=== PATIENT | male | born 1975 | race Caucasian/White ===

== ENCOUNTER 2017-06-04 08:30 | Outpatient (RCR) | payer OTHER, SELFPAY | END 2017-06-04 08:31 | disposition home or self-care (01) | LOC: PT 08:30 | PROVIDERS: Visit Provider Orthopaedic Surgery | DX: M54.5 Low back pain (principal) | CPT/HCPCS: 97010; 97012; 97014; 97035; G0283 ==

== ENCOUNTER 2017-08-07 08:30 | Outpatient (RCR) | payer OTHER, SELFPAY | END 2017-08-07 08:31 | disposition home or self-care (01) | LOC: PT 08:30 | PROVIDERS: Visit Provider Orthopaedic Surgery Orthopaedic Surgery of the Spine | DX: M54.16 Radiculopathy, lumbar region (principal) | CPT/HCPCS: 97010; 97014; 97110; G0283 ==

== ENCOUNTER → 2017-12-26 14:14 | Outpatient (CLI) | payer OTHER, SELFPAY ==
[2017-12-26 15:19] LABS: Amylase 59 U/L (25-125); Lipase 261 u/L (73-393)
== END ==
PROVIDERS: Visit Provider Internal Medicine Cardiovascular Disease
DX: I25.10 Atherosclerotic heart disease of native coronary artery without angina pectoris (principal); K21.9 Gastro-esophageal reflux disease without esophagitis; E78.5 Hyperlipidemia, unspecified
CPT/HCPCS: 36415; 82150; 83690

== ENCOUNTER → 2018-01-09 10:39 | Outpatient (CLI) | payer OTHER, SELFPAY ==
--- NOTE | 2018-01-09 10:41 | CA_ITS ---
PROCEDURE: 2-D M-mode and color Doppler study INDICATIONS FOR THE TEST: Chest pain+ COPD Heart Murmur Tobacco Smoking Palpitations Fatigue+ Syncope Edema+ Hypertension+Diabetes Mellitus Rheumatic Fever SOB+ROYAL Obesity+Hyperlipidemia+ Family History HD+ Additional History 2 stents 08/2015 PATIENT INFORMATION HEIGHT: 72 WEIGHT: 222 GENDER: Male B/P: 124/89 2-D/M-MODE INTERPRETATION: 2-D MEASUREMENTS OBSERVED VALUES IN CMS Right Ventricular Dimension (RVDd) 2.6 Interventricular Septum (Thickness)(IVsd) 1.1 Left Ventricular Internal Dimensions(LVIDd) 4.5 Left Ventricular Posterior Wall (Thickness)(LVPWd) 1.0 Aortic Root 3.3 Aortic Cusp Separation 2.4 Left Atrial Dimensions (LAD) 4.0 2D 1. Left atrium is mildly enlarged, left ventricle is normal size, mild concentric left ventricular hypertrophy, visually estimated ejection fraction 55% with no obvious regional wall motion abnormality. 2. The right atrium and right ventricle are normal size and contractility. 3. The aortic valve is thickened and calcified leaflet continue to display mobility. 4. The mitral and tricuspid valve leaflets are minimally thickened 5. The pulmonic valve is poorly visualized. 6. No significant pericardial effusion noted. DOPPLER INTERROGATION: Doppler interrogation of the aortic, mitral, tricuspid and pulmonic valve reveals presence of mild mitral and tricuspid regurgitation, tricuspid regurgitation jet velocity is insufficient for calculation of the right ventricular systolic pressure, moderate pulmonic insufficiency also seen. Diastolic parameters are inconclusive. CONCLUSION: 1. Mildly enlarged left atrium, normal left ventricular size, mild concentric left ventricular hypertrophy, visually estimated ejection fraction 55% with no obvious regional wall motion abnormality, diastolic parameters are inconclusive. 2. Mild mitral, tricuspid and moderate pulmonic insufficiency. 3. No significant pericardial effusion noted.
== END ==
PROVIDERS: Visit Provider Internal Medicine Cardiovascular Disease
DX: I25.10 Atherosclerotic heart disease of native coronary artery without angina pectoris (principal); I10 Essential (primary) hypertension; R07.9 Chest pain, unspecified; Z95.5 Presence of coronary angioplasty implant and graft
CPT/HCPCS: 93306

== ENCOUNTER 2018-06-12 13:18 | Inpatient (IN) ==
[2018-06-12 14:07] LABS: Basophils % 0.3 % (0.1-2.0); Eosinophils % 0.1 % (0.1-12.0); Hematocrit 41.5 % (42.0-52.0); Hemoglobin 13.9 g/dL (14.1-18.0); Lymphocytes # 0.5 K/mm3 (0.7-4.5); Lymphocytes % 13.6 % (10-50); Mean Corpuscular HGB Conc 33.6 g/dL (31.8-35.4); Mean Corpuscular Hemoglobin 30.1 pg (27.0-31.2); Mean Corpuscular Volume 89.4 fl (80-94); Mean Platelet Volume 8.7 fl (7.4-10.4); Monocytes # 0.2 K/mm3 (0.1-1.0); Monocytes % 4.2 % (1.7-9.3); Neutrophils % 81.8 % (37.0-80.0); Platelet Count 107 K/mm3 (142-424); Red Blood Count 4.64 M/mm3 (4.60-6.20); Red Cell Distribution Width 12.2 % (11.5-17.5); White Blood Count 3.6 K/mm3 (4.8-10.8)
[2018-06-12 14:09] LABS: Microscopic, Urine URINE MICROSCOPIC (MICROSCOPIC)
[2018-06-12 14:17] LABS: Appearance,Urine CLEAR (Clear); Bilirubin,Urine Negative (Negative); Blood, Urine 2+ (Negative); Color,Urine YELLOW (Yellow); Glucose,Urine (UA) Negative (Negative); Ketones,Urine Negative (Negative); Leukocyte Esterase,Urine Negative (Negative); PH,Urine 6.5 (5.0-8.5); Protein,Urine 1+ (Negative); Urobilinogen,Urine 0.2 EU/dl (0.2)
[2018-06-12 14:20] LABS: Albumin Level 2.9 gm/dL (3.4-5.0); Albumin/Globulin Ratio 0.8 (1.1-1.8); Anion Gap 13.8 mEq/L (5-15); Bilirubin,Total 0.5 mg/dL (0.2-1.0); Calcium 8.2 mg/dL (8.5-10.1); Globulin 3.8 gm/dl (1.3-3.2); Total Protein,Serum 6.7 gm/dL (6.4-8.2)
[2018-06-12 14:21] LABS: Potassium 2.8 mmoL/L (3.5-5.1)
--- NOTE | 2018-06-12 14:23 | Emergency Department Note ---
ED Disposition Clinical Impression: Gastroenteritis, Atypical pneumonia, Hypokalemia, Dehydration, Atypical chest pain Disposition: Admitted as Observation Condition on Discharge: Fair - Critical Care Critical Care Time: No Attestation: On 06/12/18, the high probability of a clinically significant, sudden or life threatening deterioration of the following system(s) required my full and direct attention, intervention and personal management. The time I documented below is in addition to time spent performing reported procedures but includes the following listed in this critical care notation. Medical Decision Making - Medical Records Medical records reviewed: Yes: I reviewed the patient's medical records. - Tariq Inquiry Pt receiving controlled substance: No Tariq was queried for this patient: No Vital Signs: 06/12/18 13:24 06/12/18 14:49 06/12/18 16:42 Temperature 101.5 F H 98.6 F Temperature Source Oral Oral Pulse Rate 88 Pulse Rate [Left Radial] 100 H 88 Respiratory Rate 20 16 Blood Pressure Blood Pressure [Right Arm] 120/73 102/63 L Blood Pressure Mean [Right Arm] 88 76 Blood Pressure Source [Right Arm] Automatic Cuff Automatic Cuff Blood Pressure Position [Right Arm] Sitting Sitting 02 Sat by Pulse Oximetry 100 91 L Oxygen Delivery Method Room Air Nasal Cannula Oxygen Flow Rate (LPM) 3 06/12/18 16:48 06/12/18 20:05 06/12/18 20:09 Temperature 98 F Temperature Source Oral Pulse Rate 88 87 74 Pulse Rate [Left Radial] Respiratory Rate 16 Blood Pressure 121/79 Blood Pressure [Right Arm] Blood Pressure Mean [Right Arm] Blood Pressure Source [Right Arm] Blood Pressure Position [Right Arm] 02 Sat by Pulse Oximetry Oxygen Delivery Method Room Air Oxygen Flow Rate (LPM) - Lab Data Lab results reviewed: Yes: I reviewed the patient's lab results. Lab Results 06/12/18 14:00: Urine Color Yellow, Urine Appearance Clear, Urine pH 6.5, Ur Specific [place] 1.010, Urine Protein 1+, Urine Glucose (UA) Negative, Urine Ketones Negative, Urine Blood 2+, Urine Nitrate Negative, Urine Bilirubin Negative, Urine Urobilinogen 0.2, Ur Leukocyte Esterase Negative, Urine RBC 3-5, Urine WBC 10-20, Ur Squamous Epith Cells Occasional, Urine Bacteria 2+ 06/12/18 14:00: WBC 3.6 L, RBC 4.64, Hgb 13.9 L, Hct 41.5 L, MCV 89.4, MCH 30.1, MCHC 33.6, RDW 12.2, Plt Count 107 L, MPV 8.7, Neut % (Auto) 81.8 H, Lymph % (Auto) 13.6, Sac % (Auto) 4.2, Eos % (Auto) 0.1, Baso % (Auto) 0.3, Neut # (Auto) 3.0, Lymph # (Auto) 0.5 L, Sac # (Auto) 0.2, Eos # (Auto) 0.0, Baso # (Auto) 0.0 06/12/18 14:00: Sodium 132 L, Potassium 2.8 L*, Chloride 94 L, Carbon Dioxide 2 7, Anion Gap 13.8, BUN 19 H, Creatinine 1.91 H, Estimated Creat Clear 68, Estimated GFR 39 L, Est GFR ( Amer) 47 L, Glucose 124 H, Calcium 8.2 L, Total Bilirubin 0.5, AST 257 H, ALT 248 H, Alkaline Phosphatase 103, Total Protein 6.7, Albumin 2.9 L, Globulin 3.8 H, Albumin/Globulin Ratio 0.8 L, Amylase 70, Lipase 323 06/12/18 14:00: Influenza Type A Ag Negative, Influenza Type B Ag Negative 06/12/18 14:00: Group A Strep Rapid Negative 06/12/18 14:00: Stl Aeromonas (PCR) Not detected, Stl C. cayetanensis PCR Not detected, Stool Rotavirus (PCR) Not detected, Stl Adenov F 40/41 PCR Not detected, Stool Astrovirus (PCR) Not detected, Stool Campylobacter PCR Not detected, Stl C.difficile Tox PCR Not detected, Stool Cryptosporidium PCR Not d etected, Stl E.coli Shiga Tox PCR Not detected, Stool E coli O157 PCR Not detected, Stl Enterotoxigenic E PCR Not detected, Stool EPEC (PCR) Not detected, Stool EAEC (PCR) Not detected, Stl E. histolytica PCR Not detected, Stool Giardia Lamblia PCR Not detected, Stool Salmonella PCR Not detected, Stool Sapovirus (PCR) Not detected, Stl P. shigelloides PCR Not detected, Stl Shigella/EIEC PCR Not detected, St Y.enterocolitica PCR Not detected, Stool Vibrio (PCR) Not detected, Stl Vibrio cholerae PCR Not detected, Stl Norovirus GI/GII PCR Not detected 06/12/18 14:00: Lactate 0.9 06/12/18 14:00: Troponin I 0.02 06/12/18 18:30: Sodium 134 L, Potassium 3.2 L, Chloride 97 L, Carbon Dioxide 26, Anion Gap 14.2, BUN 17, Creatinine 1.77 H, Estimated Creat Clear 74, Estimated GFR 42 L, Est GFR ( Amer) 51 L, Glucose 144 H, Calcium 7.8 L, Troponin I 0.05 06/12/18 18:30: Magnesium 1.5 Result diagrams: 06/12/18 14:00 06/12/18 18:30 Orders (Tests/Meds): ED MEDICATIONS Generic Name Dose Route Start Last Admin Trade Name Freq PRN Reason Stop Dose Admin Acetaminophen 650 mg 06/12/18 18:23 Acetaminophen 325mg Tab PO 07/12/18 18:22 Q4HP PRN As Needed for Fever or Pain Albuterol/Ipratropium 3 ml 06/12/18 21:00 06/12/18 20:04 Duoneb 3ml Critical [facility] hospital 07/12/18 20:59 3 ml QID SHERRIE Administration Albuterol/Ipratropium 3 ml 06/12/18 18:23 Duoneb 3ml Critical access hospital 07/12/18 18:22 Q4HP PRN Shortness Of Breath Guaifenesin 10 ml 06/12/18 18:23 Robitussin Dm 200mg/20mg 10ml Udc PO 07/12/18 18:22 Q6HP PRN Cough Lactated Ringer's 1,000 mls @ 999 mls/hr 06/12/18 17:30 06/12/18 17:32 Lactated Ringer's 1000 Ml Bag IV 06/12/18 18:30 999 mls/hr .Q1H1M SHERRIE Administration Levofloxacin/Dextrose 750 mg in 150 mls @ 100 mls/hr 06/12/18 17:45 06/12/18 17:46 Levofloxacin 750mg/150ml Premix IV 06/26/18 17:44 100 mls/hr Q24H SHERRIE Administration Protocol Lactated Ringer's 1,000 mls @ 100 mls/hr 06/12/18 18:30 Lactated Ringer's 1000 Ml Bag IV 07/12/18 18:29 .Q10H SHERRIE Ibuprofen 400 mg 06/12/18 18:23 Motrin 400mg Tablet PO 07/12/18 18:22 Q6HP PRN Mild Pain Non-Formulary Medication 75 mg 06/13/18 09:00 Clopidogrel Bisulfate [Plavix 75mg Tab] PO 07/13/18 08:59 DAILY SHERRIE Non-Formulary Medication 1 spray 06/13/18 09:00 Fluticasone Propionate [Flonase Allergy Relief Ns] INTRANASAL 07/13/18 08:59 DAILY SHERRIE Non-Formulary Medication 10 mg 06/13/18 09:00 Loratadine [Allergy Relief] PO 07/13/18 08:59 DAILY SHERRIE Non-Formulary Medication 0.4 mg 06/12/18 18:20 Nitroglycerin [Nitroglycerin] SUBLINGUAL Q5M PRN chest pain Non-Formulary Medication 40 mg 06/13/18 09:00 Pantoprazole Sodium [Protonix 40mg Tablet] PO 07/13/18 08:59 DAILY SHERRIE Non-Formulary Medication 150 mg 06/12/18 18:30 Ranitidine Hcl [Ranitidine Hcl] PO 07/12/18 18:29 QHS SHERRIE Non-Formulary Medication 1,000 mg 06/12/18 21:00 Ranolazine [Ranexa] PO 07/12/18 20:59 BID SHERRIE Non-Formulary Medication 81 mg 06/13/18 09:00 Aspirin [Low Dose Aspirin Ec] PO 07/13/18 08:59 DAILY SHERRIE Non-Formulary Medication 10 mg 06/12/18 18:30 Nebivolol Hcl [Bystolic] PO 07/12/18 18:29 QDAY SHERRIE Discontinued Medications Generic Name Dose Route Start Last Admin Trade Name Freq PRN Reason Stop Dose Admin Acetaminophen 1,000 mg 06/12/18 13:49 06/12/18 14:07 Tylenol 500mg Tablet PO 06/12/18 13:50 1,000 mg ONCE ONE Administration Albuterol/Ipratropium 3 ml 06/12/18 16:27 06/12/18 16:40 Duoneb 3ml Neb IH 06/12/18 16:28 3 ml ONCE ONE Administration Dexamethasone Sodium Phosphate 20 mg 06/12/18 17:19 06/12/18 17:32 Decadron 4mg/Ml 5ml Mdv IV 06/12/18 17:20 20 mg ONCE ONE Administration Famotidine 20 mg 06/12/18 13:50 06/12/18 14:07 Pepcid 20mg/2ml Vial IV 06/12/18 13:51 20 mg ONCE ONE Administration Guaifenesin 200 mg 06/12/18 18:34 06/12/18 18:36 Robitussin 200mg/10ml Syrup Udc PO 06/12/18 18:35 Not Given ONCE ONE Guaifenesin 400 mg 06/12/18 18:36 06/12/18 18:37 Robitussin 200mg/10ml Syrup Udc PO 06/12/18 18:37 400 mg ONCE ONE Administration Lactated Ringer's 1,000 mls @ 999 mls/hr 06/12/18 14:00 06/12/18 14:07 Lactated Ringer's 1000 Ml Bag IV 06/12/18 15:00 999 mls/hr .Q1H1M SHERRIE Administration Lactated Ringer's 1,000 mls @ 999 mls/hr 06/12/18 15:30 06/12/18 15:29 Lactated Ringer's 1000 Ml Bag IV 06/12/18 16:30 999 mls/hr .Q1H1M HSERRIE Administration Lactated Ringer's 1,000 mls @ 999 mls/hr 06/12/18 16:15 06/12/18 16:17 Lactated Ringer's 1000 Ml Bag IV 06/12/18 17:15 999 mls/hr .Q1H1M SHERRIE Administration Iopamidol 75 ml 06/12/18 14:37 06/12/18 14:38 [id number]; 75ml Vial IV 06/12/18 14:38 75 ml ONCE ONE Administration Protocol Iopamidol 75 ml 06/12/18 17:10 06/12/18 17:12 [id number]; 75ml Vial IV 06/12/18 17:11 75 ml ONCE ONE Administration Protocol Ketorolac Tromethamine 30 mg 06/12/18 13:48 06/12/18 14:06 Toradol 30mg/Ml Vial IV 06/12/18 13:49 30 mg ONCE ONE Administration Ondansetron HCl 4 mg 06/12/18 13:48 06/12/18 14:07 Zofran 4mg/2ml Vial IV 06/12/18 13:49 4 mg ONCE ONE Administration Pantoprazole Sodium 40 mg 06/12/18 15:27 06/12/18 15:29 Protonix 40mg Vial IV 06/12/18 15:28 40 mg ONCE ONE Administration Potassium Chloride 80 meq 06/12/18 14:22 06/12/18 15:04 Potassium Chloride 20meq/15ml Solution Udc PO 06/12/18 14:23 80 meq ONCE ONE Administration Sodium Chloride 10 ml 06/12/18 14:37 06/12/18 14:38 Rad-Saline Flush 10ml Syringe IV 06/12/18 14:38 10 ml ONCE ONE Administration Sodium Chloride 8 ml 06/12/18 15:27 06/12/18 15:29 Saline Flush 10ml Syringe IV 06/12/18 15:28 8 ml ONCE ONE Administration Sodium Chloride 50 ml 06/12/18 17:10 06/12/18 17:11 Rad-Ns 50ml Vial IV 06/12/18 17:11 50 ml ONCE ONE Administration ORDERS Category Date Time Status Basic Metabolic Panel AMLAB Lab 06/13/18 06:00 Ordered Complete Blood Count Auto Diff AMLAB Lab 06/13/18 06:00 Ordered Hepatitis Panel (4) Stat Lab 06/12/18 14:00 Received Urinalysis and Microscopic Stat Lab 06/12/18 14:00 Ordered Blood Culture Stat Micro 06/12/18 14:00 Received Strep Screen Confirmation Stat Micro 06/12/18 14:00 Received Urine Culture Stat Micro 06/12/18 14:00 Received - ECG Data Tracing #1 I reviewed this ECG and interpreted as documented below: EKG normal sinus rhythm no acute pathology heart rate 83 axis 34 ECG initial impression date: 06/12/18 ECG initial impression time: 16:40 Medical Decision Narrative: Differential diagnosis viral gastroenteritis influenza colitis food poisoning dehydration Patient's potassium is 2.8 will be given p.o. potassium CAT scan of the abdomen revealed no acute abdominal or pelvic findings however chest lower thorax showed diffuse bilateral lower lobe nodular groundglass opacities also some consolidation right middle lobe and consider consolidation of the lingula also coronary artery calcifications patient also had a 2 mm nonobstructing stone in the mid polar region of the right kidney Patient had a CT of the chest to rule out pulmonary embolus after he started coughing and exhibiting some hypoxia CTA was negative for pulmonary emboli but consistent with atypical pneumonia Prior to the CT of the chest patient started complaining of chest pain with a past history of AL patient had a normal EKG and a normal troponin chest pain probably due to coughing vomiting and pneumonia Significantly improved with IV fluids and IV steroids patient's lactic acid was normal as was his white count General Adult HPI - General Chief complaint: Abdominal Pain Stated complaint: SOA vomiting,diarrhea Time Seen by Provider: 06/12/18 13:30 Mode of Arrival: Ambulatory Limitations: No Limitations Description of Symptoms (Recalled from ER Triage Doc. by RN): Pt states that he hasnt drank or ate anything in 5 days, he has been having n/v/d with fever and belly pain - History of Present Illness HPI narrative: Patient complains of 5 days of nausea vomiting diarrhea abdominal pain has not taken a flu shot started with neck soreness and sore throat was evaluated in a clinic at that time was flu negative. He has had occasional cough severe malaise dark urine - Related Data Home Medications Medication Instructions Recorded Confirmed ranitidine 150 mg capsule 150 mg PO QHS 07/01/17 06/12/18 B cplx 4-vit D3 1,750 unit-C 60 1 tab PO DAILY tab 07/02/17 06/12/18 mg-folic acid 1 mg-zinc 12.5 mg tablet aspirin 81 mg tablet,delayed 81 mg PO DAILY tab 07/02/17 06/12/18 release clopidogrel 75 mg tablet 75 mg PO DAILY tab 07/02/17 06/12/18 loratadine 10 mg tablet 10 mg PO DAILY tab 07/02/17 06/12/18 Ranolazine [Ranexa] 1,000 mg PO BID 02/17/18 06/12/18 Fluticasone Propionate [Flonase 1 spray INTRANASAL DAILY 06/12/18 06/12/18 Allergy Relief NS] Previous Rx's Medication Instructions Recorded nitroglycerin 0.4 mg sublingual 0.4 mg SUBLINGUAL Q5M PRN #20 tab 03/18/18 tablet pantoprazole 40 mg tablet,delayed 40 mg PO DAILY #90 tab 03/21/18 release atorvastatin 80 mg tablet 80 mg PO DAILY #90 tab 03/25/18 nebivolol 10 mg tablet 10 mg PO QDAY #30 tab 04/09/18 Allergies Allergy/AdvReac Type Severity Reaction Status Date / Time No Known Allergies Allergy Verified 06/07/18 10:40 [facility] History - Hepatitis A Screen Drug use history?: No High risk sexual behaviors?: No History of sexually transmitted infection?: No Currently employed?: No Childcare worker?: No Do you have indoor plumbing?: No Do you have electricity?: No Attestation statement:: This patient has been screened for Hepatitis A risk factors. I have reviewed the patient's past medical history: Yes Medical History: Reports:: Coronary Artery Disease, Hyperlipidemia, Hypertension, Myocardial Infarction Denies:: Cancer, Diabetes Mellitus Type 1, Diabetes Mellitus Type 2, Internal Pacemaker, Lung Disease, MRSA, Seizures Laterality Cases: Bilateral: Arthroscopy Knee, Arthroscopy Shoulder Other Surgeries: Yes: Cardiac Catheterization, Coronary Stent, Hernia Repair. No: Pacemaker Amputation: No Fractures: No - Social History Smoking Status: Never smoker Alcohol Intake: never Alcohol Intake Frequency:: holidays/special occasions only Substance Use Type: denies use Occupational Status: employed Housing: house Household Members: spouse - Psychiatric History Expresses thoughts of harming self/others: None Suicide Plan Description: No Plan Family Hx:: Coronary Artery Disease, Heart Attack ROS Obtained: Yes All systems reviewed & no additional complaints - Constitutional Constitutional: Reports as per HPI, Reports body ache, Reports chills, Reports malaise, Reports weakness - Gastrointestinal Gastrointestingal: Reports: abdominal pain, diarrhea Physical Exam - General General appearance: alert, in distress - Head Head exam: atraumatic, normocephalic, normal inspection - Eye Eye exam: Present: normal appearance, PERRL, EOMI - ENT ENT exam: Present: normal exam, normal oropharynx, mucous membranes moist, TM's normal bilaterally, normal external ear exam - Neck Neck exam: Present: normal inspection, full ROM, trachea midline. Absent: meningismus, lymphadenopathy - Chest Chest inspection: Present: normal inspection, symmetric chest wall rise. Absent: tenderness - Respiratory Respiratory exam: Present: normal lung sounds bilaterally. Absent: respiratory distress - Cardiovascular Cardiovascular exam: Present: regular rate, normal rhythm. Absent: JVD - Abdominal Exam Abdominal exam: Present: soft, tenderness, normal bowel sounds. Absent: distention, guarding, rebound, rigidity Abdominal tenderness: Present: LLQ - Extremities Exam Extremities exam: Present: normal inspection, full ROM, normal capillary refill. Absent: calf tenderness - Back Exam Back exam: Present: normal inspection. Absent: tenderness - Neurological Exam Neurological exam: Present: alert, oriented X3 - Psychiatric Psychiatric exam: Present: normal affect, normal mood - Skin Skin exam: Present: warm, dry, intact, normal color - Lymphatic Lymphatic Findings: no adenopathy
[2018-06-12 14:42] LABS: Bacteria,Urine 2+ /lpf; Squamous Epithelial Cell,Urine Occasional #/hpf (0-5)
[2018-06-12 18:55] LABS: Anion Gap 14.2 mEq/L (5-15); Calcium 7.8 mg/dL (8.5-10.1); Potassium 3.2 mmoL/L (3.5-5.1)
--- NOTE | 2018-06-13 08:10 | Pharmacy Consult Notes ---
[facility] VTE Monitoring - Patient Demographics Admission date: 06/12/18 Report Date: 06/13/18 Time: 08:10 Allergies/Adverse Reactions: Patient Allergies No Known Allergies Allergy (Verified 06/07/18 10:40) Height: 1.83 m Weight: 99.79 kg Patient Problems: Current Active Problems Gastroenteritis (Acute) Atypical pneumonia (Acute) Hypokalemia (Acute) Dehydration (Acute) Atypical chest pain (Acute) - VTE Risk Labs: VTE Related Lab Results Hgb 13.9 g/dL (14.1-18.0) L 06/12/18 14:00 Hct 41.5 % (42.0-52.0) L 06/12/18 14:00 Plt Count 107 K/mm3 (142-424) L 06/12/18 14:00 BUN 17 mg/dL (7-18) 06/12/18 18:30 Creatinine 1.77 mg/dL (0.70-1.30) H 06/12/18 18:30 Estimated Creat Clear 74 mL/min (50-200) 06/12/18 18:30 Was VTE Risk Assessment Performed: Yes VTE Score: 4 VTE Risk Level: Low Risk Clinical Trial Participant: No - Prophylaxis VTE Prophylaxis Ordered?: Yes Types of VTE Prophylaxis: TEDS Knee High Location of Applied Device: Not Applicable
--- NOTE | 2018-06-13 08:53 | History & Physical Report ---
*Admission Date: 06/12/18 <Leonarda Ding 06/13/18 09:01> *Chief complaint: nausea, vomiting, diarrhea, cough, fever <Leonarda Ding 06/13/18 09:01> *History of present illness: Mr. 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 His only medical history consists of an MT approximately 2 years ago. He states last Saturday he began feeling poorly and by Saturday morning he was running a fever of over 103, had nausea and vomiting as well as diarrhea, and was coughing. He states he went to the [facility] and they told him he was negative for flu after doing a flu swab and that he had a virus. He states he went home and continued to vomit and have diarrhea for the next 5 days. He became so weak he felt he was going to pass out and therefore presented to the emergency room for evaluation. He was found to have a pneumonia and was admitted for further evaluation and treatment. At this time he is feeling slightly better. He has not vomited since admission. He still has a cough. <Leonarda Ding 06/13/18 09:01> [facility] History Medical History: Reports:: Coronary Artery Disease, Hyperlipidemia, Hypertension, Myocardial Infarction Denies:: Cancer, Diabetes Mellitus Type 1, Diabetes Mellitus Type 2, Internal Pacemaker, Lung Disease, MRSA, Seizures <Leonarda Ding 06/13/18 09:01> Have you ever received a pneumonia vaccine?: No <Leonarda Ding 06/13/18 09:01> Have you received a flu vaccine this season?: No <Leonarda Ding 06/13/18 09:01> Laterality Cases: Bilateral: Arthroscopy Knee, Arthroscopy Shoulder <Leonarda Ding 06/13/18 09:01> Other Surgeries: Yes: Cardiac Catheterization, Coronary Stent, Hernia Repair, Other (Femoral artery repair). No: Pacemaker <Leonarda Ding 06/13/18 09:01> Amputation: No <Leonarda Ding 06/13/18 09:01> Fractures: No <Leonarda Ding 06/13/18 09:01> - *Social History Educational Level: Completed High School <Leonarda Ding 06/13/18 09:01> Smoking Status: Never smoker <Leonarda Ding 06/13/18 09:01> Alcohol Intake: never <Leonarda Ding 06/13/18 09:01> Alcohol Intake Frequency:: holidays/special occasions only <Leonarda Ding 06/13/18 09:01> Substance Use Type: denies use <Leonarda Ding 06/13/18 09:01> Occupational Status: employed <Leonarda Ding 06/13/18 09:01> Housing: house <Leonarda Ding 06/13/18 09:01> Household Members: spouse <Leonarda Ding 06/13/18 09:01> Travel in the last 8 weeks: None <Leonarda Ding 06/13/18 09:01> - Psychiatric History Expresses thoughts of harming self/others: None <Leonarda Ding 06/13/18 09:01> Suicide Plan Description: No Plan <Leonarda Ding 06/13/18 09:01> *Family Hx:: Coronary Artery Disease, Diabetes, Heart Attack, Hyperlipidemia, Hypertension, Stroke <Leonarda Ding 06/13/18 09:01> Review of Systems - Constitutional Reports body ache(s), Reports chills, Reports fatigue, Reports fever(s), Reports headache(s), Reports weakness <Leonarda Ding 06/13/18 09:01> - Eyes Denies blurry vision, Denies double vision <Leonarda Ding 06/13/18 09:01> - ENT Reports sore throat, Denies nasal congestion <Leonarda Ding 06/13/18 09:01> - *Cardiovascular Reports chest pain, Denies rapid, pounding, or irregular heartbeat <Leonarda Ding 06/13/18 09:01> - *Respiratory Reports cough, Reports shortness of breath <Leonarda Ding 06/13/18 09:01> - *Gastrointestinal Reports abdominal pain, Reports loose stools, Reports nausea, Reports vomiting <Leonarda Ding 06/13/18 09:01> - *Genitourinary Denies difficulty urinating, Denies painful urination <Leonarda Ding 06/13/18 09:01> - *Musculoskeletal Reports body aches <Leonarda Ding - 06/13/18 09:01> - *Neurologic Reports headache(s), Reports dizziness, Reports weakness <Leonarda Ding - 06/13/18 09:01> Meds Home Medications Medication Instructions Recorded Confirmed Type ranitidine 150 mg capsule 150 mg PO QHS 07/01/17 06/12/18 History B cplx 4-vit D3 1,750 unit-C 60 1 tab PO DAILY tab 07/02/17 06/12/18 History mg-folic acid 1 mg-zinc 12.5 mg tablet aspirin 81 mg tablet,delayed 81 mg PO DAILY tab 07/02/17 06/12/18 History release clopidogrel 75 mg tablet 75 mg PO DAILY tab 07/02/17 06/12/18 History loratadine 10 mg tablet 10 mg PO DAILY tab 07/02/17 06/12/18 History nitroglycerin 0.4 mg sublingual 0.4 mg SUBLINGUAL Q5M PRN #20 tab 03/18/18 06/12/18 Rx tablet pantoprazole 40 mg tablet,delayed 40 mg PO DAILY #90 tab 03/21/18 06/12/18 Rx release atorvastatin 80 mg tablet 80 mg PO DAILY #90 tab 03/25/18 06/12/18 Rx nebivolol 10 mg tablet 10 mg PO QDAY #30 tab 04/09/18 06/12/18 Rx Fluticasone Propionate [Flonase 1 spray INTRANASAL DAILY 06/12/18 06/12/18 History Allergy Relief NS] <Jennifer Berkowitz - 06/13/18 09:43> Allergies Allergy/AdvReac Type Severity Reaction Status Date / Time No Known Allergies Allergy Verified 06/07/18 10:40 <Jennifer Berkowitz - 06/13/18 09:43> Exam Vital signs and Labs for Last 24 Hours: Temp Pulse Resp BP Pulse Ox 98.0 F 76 18 107/69 L 96 06/13/18 08:00 06/13/18 08:00 06/13/18 08:00 06/13/18 08:00 06/13/18 08:00 Laboratory Results - last 24 hr 06/12/18 14:00: Urine Color Yellow, Urine Appearance Clear, Urine pH 6.5, Ur Specific [place] 1.010, Urine Protein 1+, Urine Glucose (UA) Negative, Urine Ketones Negative, Urine Blood 2+, Urine Nitrate Negative, Urine Bilirubin Negative, Urine Urobilinogen 0.2, Ur Leukocyte Esterase Negative, Urine RBC 3-5, Urine WBC 10-20, Ur Squamous Epith Cells Occasional, Urine Bacteria 2+ 06/12/18 14:00: WBC 3.6 L, RBC 4.64, Hgb 13.9 L, Hct 41.5 L, MCV 89.4, MCH 30.1, MCHC 33.6, RDW 12.2, Plt Count 107 L, MPV 8.7, Neut % (Auto) 81.8 H, Lymph % (Auto) 13.6, [place] % (Auto) 4.2, Eos % (Auto) 0.1, Baso % (Auto) 0.3, Neut # (Auto) 3.0, Lymph # (Auto) 0.5 L, [place] # (Auto) 0.2, Eos # (Auto) 0.0, Baso # (Auto) 0.0 06/12/18 14:00: Sodium 132 L, Potassium 2.8 L*, Chloride 94 L, Carbon Dioxide 27, Anion Gap 13.8, BUN 19 H, Creatinine 1.91 H, Estimated Creat Clear 68, Estimated GFR 39 L, Est GFR ( Amer) 47 L, Glucose 124 H, Calcium 8.2 L, Total Bilirubin 0.5, AST 257 H, ALT 248 H, Alkaline Phosphatase 103, Total Protein 6.7, Albumin 2.9 L, Globulin 3.8 H, Albumin/Globulin Ratio 0.8 L, Amylase 70, Lipase 323 06/12/18 14:00: Influenza Type A Ag Negative, Influenza Type B Ag Negative 06/12/18 14:00: Group A Strep Rapid Negative 06/12/18 14:00: Stl Aeromonas (PCR) Not detected, Stl C. cayetanensis PCR Not detected, Stool Rotavirus (PCR) Not detected, Stl Adenov F 40/41 PCR Not detected, Stool Astrovirus (PCR) Not detected, Stool Campylobacter PCR Not detected, Stl C.difficile Tox PCR Not detected, Stool Cryptosporidium PCR Not detected, Stl E.coli Shiga Tox PCR Not detected, Stool E coli O157 PCR Not detected, Stl Enterotoxigenic E PCR Not detected, Stool EPEC (PCR) Not detected, Stool EAEC (PCR) Not detected, Stl E. histolytica PCR Not detected, Stool Giardia Lamblia PCR Not detected, Stool Salmonella PCR Not detected, Stool Sapovirus (PCR) Not detected, Stl P. shigelloides PCR Not detected, Stl Shigella/EIEC PCR Not detected, St Y.enterocolitica PCR Not detected, Stool Vibrio (PCR) Not detected, Stl Vibrio cholerae PCR Not detected, Stl Norovirus GI/GII PCR Not detected 06/12/18 14:00: Lactate 0.9 06/12/18 14:00: Troponin I 0.02 06/12/18 18:30: Sodium 134 L, Potassium 3.2 L, Chloride 97 L, Carbon Dioxide 26, Anion Gap 14.2, BUN 17, Creatinine 1.77 H, Estimated Creat Clear 74, Estimated GFR 42 L, Est GFR ( Amer) 51 L, Glucose 144 H, Calcium 7.8 L, Troponin I 0.05 06/12/18 18:30: Magnesium 1.5 <Jennifer Berkowitz - 06/13/18 09:43> Temp Pulse Resp BP Pulse Ox 98.3 F 96 H 17 120/76 88 L 06/13/18 04:00 06/13/18 06:42 06/13/18 04:00 06/13/18 04:00 06/13/18 06:42 Laboratory Results - last 24 hr 06/12/18 14:00: Urine Color Yellow, Urine Appearance Clear, Urine pH 6.5, Ur Specific [place] 1.010, Urine Protein 1+, Urine Glucose (UA) Negative, Urine Ketones Negative, Urine Blood 2+, Urine Nitrate Negative, Urine Bilirubin Negative, Urine Urobilinogen 0.2, Ur Leukocyte Esterase Negative, Urine RBC 3-5, Urine WBC 10-20, Ur Squamous Epith Cells Occasional, Urine Bacteria 2+ 06/12/18 14:00: WBC 3.6 L, RBC 4.64, Hgb 13.9 L, Hct 41.5 L, MCV 89.4, MCH 30.1, MCHC 33.6, RDW 12.2, Plt Count 107 L, MPV 8.7, Neut % (Auto) 81.8 H, Lymph % (Auto) 13.6, [place] % (Auto) 4.2, Eos % (Auto) 0.1, Baso % (Auto) 0.3, Neut # (Auto) 3.0, Lymph # (Auto) 0.5 L, [place] # (Auto) 0.2, Eos # (Auto) 0.0, Baso # (Auto) 0.0 06/12/18 14:00: Sodium 132 L, Potassium 2.8 L*, Chloride 94 L, Carbon Dioxide 27, Anion Gap 13.8, BUN 19 H, Creatinine 1.91 H, Estimated Creat Clear 68, Estimated GFR 39 L, Est GFR ( Amer) 47 L, Glucose 124 H, Calcium 8.2 L, Total Bilirubin 0.5, AST 257 H, ALT 248 H, Alkaline Phosphatase 103, Total Protein 6.7, Albumin 2.9 L, Globulin 3.8 H, Albumin/Globulin Ratio 0.8 L, Amylase 70, Lipase 323 06/12/18 14:00: Influenza Type A Ag Negative, Influenza Type B Ag Negative 06/12/18 14:00: Group A Strep Rapid Negative 06/12/18 14:00: Stl Aeromonas (PCR) Not detected, Stl C. cayetanensis PCR Not detected, Stool Rotavirus (PCR) Not detected, Stl Adenov F 40/41 PCR Not detected, Stool Astrovirus (PCR) Not detected, Stool Campylobacter PCR Not detected, Stl C.difficile Tox PCR Not detected, Stool Cryptosporidium PCR Not detected, Stl E.coli Shiga Tox PCR Not detected, Stool E coli O157 PCR Not detected, Stl Enterotoxigenic E PCR Not detected, Stool EPEC (PCR) Not detected, Stool EAEC (PCR) Not detected, Stl E. histolytica PCR Not detected, Stool Giardia Lamblia PCR Not detected, Stool Salmonella PCR Not detected, Stool Sapovirus (PCR) Not detected, Stl P. shigelloides PCR Not detected, Stl Shigella/EIEC PCR Not detected, St Y.enterocolitica PCR Not detected, Stool Vibrio (PCR) Not detected, Stl Vibrio cholerae PCR Not detected, Stl Norovirus GI/GII PCR Not detected 06/12/18 14:00: Lactate 0.9 06/12/18 14:00: Troponin I 0.02 06/12/18 18:30: Sodium 134 L, Potassium 3.2 L, Chloride 97 L, Carbon Dioxide 26, Anion Gap 14.2, BUN 17, Creatinine 1.77 H, Estimated Creat Clear 74, Estimated GFR 42 L, Est GFR ( Amer) 51 L, Glucose 144 H, Calcium 7.8 L, Troponin I 0.05 06/12/18 18:30: Magnesium 1.5 <Leonarda Ding 06/13/18 09:01> I & O for Last 24 hours: Intake & Output 06/10/18 06/11/18 06/12/18 06/13/18 11:59 11:59 11:59 11:59 Intake Total 4783 / 4783 Output Total 600 / 600 Balance 4183 / 4183 Weight 220 lb <Jennifer Berkowitz 06/13/18 09:43> Intake & Output 06/10/18 06/11/18 06/12/18 06/13/18 11:59 11:59 11:59 11:59 Intake Total 4783 / 4783 Output Total 600 / 600 Balance 4183 / 4183 Weight 220 lb <Leonarda Ding 06/13/18 09:01> Microbiology Reports for the Last 24 Hours: Microbiology 06/12/18 14:00 Throat Group A Streptococcus Screen ([facility]) - Final Negative for Group A Streptococcus. <Jennifer Berkowitz 06/13/18 09:43> Microbiology 06/12/18 14:00 Throat Group A Streptococcus Screen ([place]) - Final Negative for Group A Streptococcus. <Leonarda Ding 06/13/18 09:01> - Constitutional no acute distress <Leonarda Ding 06/13/18 09:01> - *Routine HEENT Exam Head: Present: normocephalic <Leonarda Ding 06/13/18 09:01> Eye: Present: EOMI, PERRL <Leonarda Ding 06/13/18 09:01> ENT: Present: mucous membranes dry <Leonarda Ding 06/13/18 09:01> - *Routine Neck Exam Present: supple. Absent: lymphadenopathy <Leonarda Ding 06/13/18 09:01> - *Routine Respiratory Exam Present: rales (bibasilar worse on the right side). Absent: rhonchi, wheezes <Leonarda Ding 06/13/18 09:01> - *Routine Cardiovascular Exam Present: RRR <Leonarda Ding 06/13/18 09:01> - *Routine Abdominal Exam Present: soft, normoactive bowel sounds, tenderness (diffuse) <Leonarda Ding 06/13/18 09:01> - *Routine Extremities Exam Absent: cyanosis, clubbing, edema <Leonarda Ding 06/13/18 09:01> - *Routine Skin Exam Present: warm. Absent: rash <Leonarda Ding 06/13/18 09:01> - *Routine Neurological Exam Present: alert, oriented X3 <Leonarda Ding 06/13/18 09:01> H&P: Result - Impressions Abd/Pelvis CT 1. No acute abdominal or pelvic findings. 2. Scattered groundglass nodular opacities in the lower lobes as well as some consolidation in the right middle lobe and lingula consistent with bilateral pneumonia. This has a somewhat nodular appearance and could be related to septic emboli/hematogenous spread. This is incompletely imaged. Chest CT may provide further evaluation if clinically warranted CXR - Bilateral pneumonia CTA - 1. No evidence of pulmonary embolus. 2. Patchy diffuse bilateral areas of consolidation consistent with atypical pneumonia <Leonarda Ding 06/13/18 09:01> Assessment and Plan (1) Atypical pneumonia Current visit: Yes Status: Acute Category: Medical Code(s): J18.9 - Pneumonia, unspecified organism (2) Dehydration Current visit: Yes Status: Acute Category: Medical Code(s): E86.0 - Dehydration (3) Gastroenteritis Current visit: Yes Status: Acute Category: Medical Code(s): K52.9 - Noninfective gastroenteritis and colitis, unspecified (4) Hypokalemia Current visit: Yes Status: Acute Category: Medical Code(s): E87.6 - Hypokalemia (5) Coronary arteriosclerosis Current visit: No Status: Chronic Category: Medical Code(s): I25.10 - Atherosclerotic heart disease of [place] coronary artery without angina pectoris (6) Hyperlipidemia Current visit: No Status: Chronic Qualifiers: Hyperlipidemia type: mixed hyperlipidemia Qualified Code(s): E78.2 - Mixed hyperlipidemia Category: Medical Code(s): E78.5 - Hyperlipidemia, unspecified (7) Hypertensive disorder Current visit: No Status: Chronic Qualifiers: Hypertension type: essential hypertension Qualified Code(s): I10 - Essential (primary) hypertension Category: Medical Code(s): I10 - Essential (primary) hypertension (8) Stented coronary artery Current visit: No Status: Chronic Category: Surgical Code(s): Z95.5 - Presence of coronary angioplasty implant and graft <Leonarda Ding - 06/13/18 08:50> (1) Atypical pneumonia Current visit: Yes Status: Acute Category: Medical Code(s): J18.9 - Pneumonia, unspecified organism (2) Dehydration Current visit: Yes Status: Acute Category: Medical Code(s): E86.0 - Dehydration (3) Gastroenteritis Current visit: Yes Status: Acute Category: Medical Code(s): K52.9 - Noninfective gastroenteritis and colitis, unspecified (4) Hypokalemia Current visit: Yes Status: Acute Category: Medical Code(s): E87.6 - Hypokalemia (5) Coronary arteriosclerosis Current visit: No Status: Chronic Category: Medical Code(s): I25.10 - Atherosclerotic heart disease of [place] coronary artery without angina pectoris (6) Hyperlipidemia Current visit: No Status: Chronic Qualifiers: Hyperlipidemia type: mixed hyperlipidemia Qualified Code(s): E78.2 - Mixed hyperlipidemia Category: Medical Code(s): E78.5 - Hyperlipidemia, unspecified (7) Hypertensive disorder Current visit: No Status: Chronic Qualifiers: Hypertension type: essential hypertension Qualified Code(s): I10 - Essential (primary) hypertension Category: Medical Code(s): I10 - Essential (primary) hypertension (8) Stented coronary artery Current visit: No Status: Chronic Category: Surgical Code(s): Z95.5 - Presence of coronary angioplasty implant and graft <Jennifer Berkowitz - 06/13/18 09:43> - Assessment and plan all Dx Assessment and Plan for all problems:: continue abx and neb tx. Will await for cultures. Possible dc 2-3 days. <Jennifer Berkowitz - 06/13/18 09:43> Will continue nebs and abx. Will wait on patient's to bring his medications so we can verify them. <Leonarda Ding - 06/13/18 09:01>
[2018-06-13 20:40] LABS: ABG Base Excess 4.1 mmol/L (-2.4-2.3); ABG HCO3 26.7 mmhg (22.0-26.0); ABG Oxygen Saturation 84 % (90-100); ABG PCO2 32.3 mmhg (35.0-45.0); ABG PH 7.54 mmol/L (7.35-7.45); ABG TCO2 27.7 mmhg (23-27)
[2018-06-13 20:43] LABS: Allen's Test Acceptable; Oxygen 50% VENI MASK %
[2018-06-14 01:17] LABS: ABG Base Excess 4.7 mmol/L (-2.4-2.3); ABG HCO3 28.5 mmhg (22.0-26.0); ABG Oxygen Saturation 92 % (90-100); ABG PCO2 40.4 mmhg (35.0-45.0); ABG PH 7.47 mmol/L (7.35-7.45); ABG PO2 63.7 mmhg (80-100); ABG TCO2 29.7 mmhg (23-27)
[2018-06-14 01:18] LABS: Basophils % 0.1 % (0.1-2.0); Hemoglobin 12.1 g/dL (14.1-18.0); Lymphocytes # 0.6 K/mm3 (0.7-4.5); Lymphocytes % 10.9 % (10-50); Mean Corpuscular HGB Conc 34.4 g/dL (31.8-35.4); Mean Corpuscular Hemoglobin 30.3 pg (27.0-31.2); Mean Platelet Volume 7.8 fl (7.4-10.4); Monocytes # 0.2 K/mm3 (0.1-1.0); Monocytes % 3.5 % (1.7-9.3); Neutrophils # 4.9 K/mm3 (1.8-7.8); Neutrophils % 85.4 % (37.0-80.0); Platelet Count 134 K/mm3 (142-424); Red Blood Count 3.98 M/mm3 (4.60-6.20); Red Cell Distribution Width 12.7 % (11.5-17.5); White Blood Count 5.8 K/mm3 (4.8-10.8)
[2018-06-14 01:19] LABS: Allen's Test Acceptable; Oxygen 100% NRB %
[2018-06-14 01:37] LABS: Lymphocytes % 14 % (10-50); Neutrophils % 81 % (42-76); RBC Morphology Normal; Total Cells Counted 100
[2018-06-14 01:40] LABS: Anion Gap 14.5 mEq/L (5-15); Potassium 3.5 mmoL/L (3.5-5.1)
[2018-06-14 01:41] LABS: Calcium 7.9 mg/dL (8.5-10.1)
--- NOTE | 2018-06-14 01:45 | Progress Note ---
Acute Rapid Response Note - Subjective Date Responded: 06/14/18 Time Responded: 01:30 Provider Note: called to see pt sec to dec sats - he has hx of atypical pneumonia and on abx and resp treatment s and o2 - pt alert w/o specific c/o and clinical exam consistent with cap- - Objective Findings: Vital Signs - Last 4 Hours Temperature 98.5 F 06/14/18 00:35 Temperature Source Oral 06/14/18 00:35 Pulse Rate 94 H 06/14/18 00:35 Respiratory Rate 20 06/14/18 00:35 Blood Pressure 93/55 L 06/14/18 00:35 Blood Pressure Mean 67 06/14/18 00:35 Blood Pressure Source Automatic Cuff 06/14/18 00:35 Blood Pressure Position Supine 06/14/18 00:35 02 Sat by Pulse Oximetry 92 L 06/14/18 00:35 Oxygen Delivery Method 06/14/18 01:32 Oxygen Flow Rate (LPM) 15 06/14/18 01:32 Lab Results for Past 12 Hours 06/14/18 01:15: Specimen Source Left radial, O2 % 100% nrb, ABG pH 7.47 H, ABG pCO2 40.4, ABG pO2 63.7 L, ABG HCO3 28.5 H, ABG Total CO2 29.7 H, ABG O2 Saturation 92, ABG Base Excess 4.7 H, Antwan Test Acceptable 06/14/18 01:05: CK-MB (CK-2) 5.9 H, Troponin I 0.10 H 06/14/18 01:05: Sodium 139, Potassium 3.5, Chloride 101, Carbon Dioxide 27, Anion Gap 14.5, BUN 17, Creatinine 1.52 H, Estimated Creat Clear 88, Estimated GFR 50 L, Est GFR ( Amer) 61, Glucose 124 H, Calcium 7.9 L 06/14/18 01:05: WBC 5.8 D, RBC 3.98 L, Hgb 12.1 L, Hct 35.0 L, MCV 88.0, MCH 30.3, MCHC 34.4, RDW 12.7, Plt Count 134 L D, MPV 7.8, Neut % (Auto) 85.4 H, Lymph % (Auto) 10.9, [place] % (Auto) 3.5, Eos % (Auto) 0.0 L, Baso % (Auto) 0.1, Neut # (Auto) 4.9, Lymph # (Auto) 0.6 L, [place] # (Auto) 0.2, Eos # (Auto) 0.0, Baso # (Auto) 0.0, Total Counted 100, Neutrophils % (Manual) 81 H, Band Neutrophils % 5.0, Lymphocytes % (Manual) 14, Platelet Estimate Normal, RBC Morphology Normal 06/13/18 21:57: POC Glucose 133 H 06/13/18 20:36: Specimen Source Right radial, O2 % 50% ronda mask, ABG pH 7.54 H, ABG pCO2 32.3 L, ABG pO2 45.0 L, ABG HCO3 26.7 H, ABG Total CO2 27.7 H, ABG O2 Saturation 84 L*, ABG Base Excess 4.1 H, Antwan Test Acceptable My Orders Category Date Time Status Communication order NOW Care 06/14/18 01:02 Active XR chest portable Stat Exams 06/14/18 01:00 Taken Basic Metabolic Panel Stat Lab 06/14/18 01:05 Completed CKMB [Creatine Kinase MB] Stat Lab 06/14/18 01:05 Completed Complete Blood Count Auto Diff Stat Lab 06/14/18 01:05 Completed Lactic Acid Stat Lab 06/14/18 01:05 Received Mycoplasma Pneumo IGM (Rapid) Stat Lab 06/14/18 01:05 Received Troponin I Stat Lab 06/14/18 01:05 Completed 0.9 % Sodium Chloride [Sod Chlor 0.9% 1000mL Bag] 1,000 Med 06/14/18 01:30 Active ml IV 999 mls/hr BIPAP NEEDED RT 06/14/18 01:18 Active 12-lead EKG Request [ECG Request by /Erika] Stat Y 06/14/18 01:18 Ordered - Radiology Findings #1 Xray Reviewed: Chest Image Reviewed: Yes I reviewed the patient's radiology image ED XR Results: Abnormal (inc bilat pneumonia ) - ECG Data Tracing #1 ECG initial impression date: 06/14/18 ECG initial impression time: 01:40 Arrhythmias present: other (nsr) Ischemic changes: non-specific ST-T wave changes Rapid Response Exam - General General appearance: alert, in no apparent distress - Head Head exam: atraumatic - Eye Eye exam: Present: PERRL, EOMI. Absent: scleral icterus - ENT ENT exam: Present: mucous membranes dry - Neck Neck exam: Absent: trachea midline - Respiratory Respiratory exam: Present: other (bilat rales bilat ). Absent: respiratory distress - Cardiovascular Cardiovascular exam: Present: regular rate. Absent: systolic murmur, rubs, gallop - Abdominal Exam Abdominal exam: Present: soft - Extremities Exam Extremities exam: Present: full ROM - Neurological Exam Neurological exam: Present: alert, oriented X3, CN II-XII intact - Psychiatric Psychiatric exam: Present: normal affect - Skin Skin exam: Absent: rash RR Procedures/Assess/Plan - Physician Consults Physician Consulted: margoth Comment/Response: will add vasotherm and inc fluids - labs were reviewed
[2018-06-14 05:21] LABS: Coronavirus 229E Not Detected (NotDetected); Coronavirus NL63 Not Detected (NotDetected); Coronavirus OC43 Not Detected (NotDetected); Coronovirus HKU1,PCR Not Detected (NotDetected)
[2018-06-14 06:28] LABS: Basophils % 0.1 % (0.1-2.0); Hematocrit 33.7 % (42.0-52.0); Hemoglobin 11.5 g/dL (14.1-18.0); Lymphocytes # 0.5 K/mm3 (0.7-4.5); Lymphocytes % 11.3 % (10-50); Mean Corpuscular Hemoglobin 30.2 pg (27.0-31.2); Mean Corpuscular Volume 88.6 fl (80-94); Mean Platelet Volume 7.9 fl (7.4-10.4); Monocytes # 0.2 K/mm3 (0.1-1.0); Monocytes % 4.4 % (1.7-9.3); Neutrophils # 3.9 K/mm3 (1.8-7.8); Neutrophils % 84.3 % (37.0-80.0); Platelet Count 131 K/mm3 (142-424); Red Blood Count 3.81 M/mm3 (4.60-6.20); Red Cell Distribution Width 12.7 % (11.5-17.5); White Blood Count 4.6 K/mm3 (4.8-10.8)
[2018-06-14 07:07] LABS: Albumin Level 2.2 gm/dL (3.4-5.0); Albumin/Globulin Ratio 0.9 (1.1-1.8); Anion Gap 13.6 mEq/L (5-15); Calcium 7.4 mg/dL (8.5-10.1); Globulin 2.4 gm/dl (1.3-3.2); Potassium 3.6 mmoL/L (3.5-5.1); Total Protein,Serum 4.6 gm/dL (6.4-8.2)
--- NOTE | 2018-06-14 07:14 | Progress Note ---
Internal Medicine - PN: Subj *Date: 06/14/18 *Time: 07:11 Interval history: Events of last night reviewed, case discussed with Dr. Capellan. Patient has become more hyoxic overnight, now on Vapotherm at 100% FiO2 and maintaining sats in the mid 80's. Patient states he feels more short of breath, had fever to 103 overnight. Got 1 dose of IV Lasix and hads had minimal UOP increase. Exam Vital signs and Labs for Last 24 Hours: Temp Pulse Resp BP Pulse Ox 99.1 F 111 H 19 106/64 L 97 06/14/18 06:45 06/14/18 06:00 06/14/18 04:00 06/14/18 06:00 06/14/18 06:56 Laboratory Results - last 24 hr 06/13/18 20:36: Specimen Source Right radial, O2 % 50% ronda mask, ABG pH 7.54 H, ABG pCO2 32.3 L, ABG pO2 45.0 L, ABG HCO3 26.7 H, ABG Total CO2 27.7 H, ABG O2 Saturation 84 L*, ABG Base Excess 4.1 H, Antwan Test Acceptable 06/13/18 21:57: POC Glucose 133 H 06/14/18 00:53: POC Glucose 120 H 06/14/18 01:05: WBC 5.8 D, RBC 3.98 L, Hgb 12.1 L, Hct 35.0 L, MCV 88.0, MCH 30.3, MCHC 34.4, RDW 12.7, Plt Count 134 L D, MPV 7.8, Neut % (Auto) 85.4 H, Lymph % (Auto) 10.9, [place] % (Auto) 3.5, Eos % (Auto) 0.0 L, Baso % (Auto) 0.1, Neut # (Auto) 4.9, Lymph # (Auto) 0.6 L, [place] # (Auto) 0.2, Eos # (Auto) 0.0, Baso # (Auto) 0.0, Total Counted 100, Neutrophils % (Manual) 81 H, Band Neutrophils % 5.0, Lymphocytes % (Manual) 14, Platelet Estimate Normal, RBC Morphology Normal 06/14/18 01:05: Sodium 139, Potassium 3.5, Chloride 101, Carbon Dioxide 27, Anion Gap 14.5, BUN 17, Creatinine 1.52 H, Estimated Creat Clear 88, Estimated GFR 50 L, Est GFR ( Amer) 61, Glucose 124 H, Calcium 7.9 L 06/14/18 01:05: Lactate 1.4 06/14/18 01:05: CK-MB (CK-2) 5.9 H, Troponin I 0.10 H 06/14/18 01:05: Mycoplasma pneumon IgM Reactive A 06/14/18 01:15: Specimen Source Left radial, O2 % 100% nrb, ABG pH 7.47 H, ABG pCO2 40.4, ABG pO2 63.7 L, ABG HCO3 28.5 H, ABG Total CO2 29.7 H, ABG O2 Saturation 92, ABG Base Excess 4.7 H, [place]twan Test Acceptable 06/14/18 05:15: Chlamy pneumoniae PCR Not detected, Adenovirus (PCR) Not detected, B. pertussis DNA (PCR) Not detected, Coronavirus OC43 (PCR) Not detect ed, Coronavirus HKU1 (PCR) Not detected, Coronavirus 229E (PCR) Not detected, Coronavirus NL63 (PCR) Not detected, Human Metapneumovir PCR Not detected, Influenza A (H1) PCR Not detected, Influ A (H1N1/09) PCR Not detected, Influenza A (H3) PCR Not detected, Influenza Type A (PCR) Not detected, Influenza Type B (PCR) Not detected, M. pneumoniae (PCR) Not detected, Parainfluenza 1 (PCR) Not detected, Parainfluenza 2 (PCR) Not detected, Parainfluenza 3 (PCR) Not detected, Parainfluenza 4 (PCR) Not detected, RSV (PCR) Not detected, Entero/Rhino (PCR) Not detected 06/14/18 06:10: WBC 4.6 L, RBC 3.81 L, Hgb 11.5 L, Hct 33.7 L, MCV 88.6, MCH 30.2, MCHC 34.0, RDW 12.7, Plt Count 131 L, MPV 7.9, Neut % (Auto) 84.3 H, Lymph % (Auto) 11.3, [place] % (Auto) 4.4, Eos % (Auto) 0.0 L, Baso % (Auto) 0.1, Neut # (Auto) 3.9, Lymph # (Auto) 0.5 L, [place] # (Auto) 0.2, Eos # (Auto) 0.0, Baso # (Auto) 0.0 Vital Signs - 24 hr 06/13/18 08:00 06/13/18 10:10 06/13/18 12:00 Temperature 98.0 F 99.0 F Pulse Rate 81 Pulse Rate [Left Radial] 76 102 H Respiratory Rate 18 24 Blood Pressure [Right Arm] 107/69 L 124/89 02 Sat by Pulse Oximetry 96 90 L 06/13/18 13:47 06/13/18 16:00 06/13/18 19:45 Temperature 99.5 F Pulse Rate 82 104 H Pulse Rate [Left Radial] 98 H Respiratory Rate 20 Blood Pressure [Right Arm] 128/80 02 Sat by Pulse Oximetry 91 L 97 06/13/18 20:00 06/13/18 20:57 06/13/18 21:45 Temperature 102.2 F H 103.0 F H 101.8 F H Pulse Rate Pulse Rate [Left Radial] 103 H Respiratory Rate 24 Blood Pressure [Right Arm] 122/67 02 Sat by Pulse Oximetry 80 L 06/13/18 22:00 06/13/18 23:00 06/13/18 23:41 Temperature 100.1 F H 99.1 F Pulse Rate Pulse Rate [Left Radial] 83 Respiratory Rate 24 Blood Pressure [Right Arm] 97/43 L 02 Sat by Pulse Oximetry 90 L 06/13/18 23:51 06/14/18 00:35 06/14/18 01:08 Temperature 98.5 F Pulse Rate 80 Pulse Rate [Left Radial] 94 H Respiratory Rate 20 Blood Pressure [Right Arm] 90/58 L 93/55 L 02 Sat by Pulse Oximetry 92 L 06/14/18 02:00 06/14/18 02:08 06/14/18 02:44 Temperature Pulse Rate Pulse Rate [Left Radial] 97 H Respiratory Rate Blood Pressure [Right Arm] 137/86 02 Sat by Pulse Oximetry 92 L 92 L 90 L 06/14/18 02:47 06/14/18 04:00 06/14/18 04:14 Temperature Pulse Rate 90 83 Pulse Rate [Left Radial] 88 Respiratory Rate 19 Blood Pressure [Right Arm] 116/72 02 Sat by Pulse Oximetry 89 L 90 L 06/14/18 05:00 06/14/18 05:26 06/14/18 06:00 Temperature Pulse Rate Pulse Rate [Left Radial] 102 H 111 H Respiratory Rate Blood Pressure [Right Arm] 99/56 L 106/64 L 02 Sat by Pulse Oximetry 87 L 87 L 80 L 06/14/18 06:45 06/14/18 06:51 06/14/18 06:56 Temperature 99.1 F Pulse Rate Pulse Rate [Left Radial] Respiratory Rate Blood Pressure [Right Arm] 02 Sat by Pulse Oximetry 90 L 97 I & O for Last 24 hours: Intake & Output 06/11/18 06/12/18 06/13/18 06/14/18 11:59 11:59 11:59 11:59 Intake Total 4783 / 4783 3680 / 3680 Output Total 600 / 600 1700 / 1700 Balance 4183 / 4183 1979 / 1979 Weight 220 lb 219 lb 2 oz Microbiology Reports for the Last 24 Hours: Microbiology 06/12/18 14:00 Urine,Clean Catch Urine Culture - Preliminary NO GROWTH AFTER 24 HOURS 06/13/18 06:30 Sputum - Expectorated Sputum Gram Stain - Final 06/12/18 14:00 Throat Group A Streptococcus Screen ([place]) - Final Negative for Group A Streptococcus. - Constitutional mild distress - *Routine HEENT Exam Head: Present: normocephalic Eye: Present: EOMI, PERRL ENT: Present: mucous membranes moist - *Routine Neck Exam Present: supple. Absent: lymphadenopathy - *Routine Respiratory Exam Present: decreased breath sounds, rales (rare), rhonchi, diminished air movement. Absent: wheezes - *Routine Cardiovascular Exam Present: RRR - *Routine Abdominal Exam Present: soft, normoactive bowel sounds. Absent: tenderness - *Routine Extremities Exam Absent: cyanosis, clubbing, edema - *Routine Skin Exam Present: warm. Absent: rash - *Routine Neurological Exam Present: alert, oriented X3 Assessment and Plan (1) Acute respiratory failure with hypoxia Current visit: Yes Status: Acute Category: Medical Code(s): J96.01 - Acute respiratory failure with hypoxia (2) Diffuse pneumonia Current visit: Yes Status: Acute Category: Medical Code(s): J18.0 - Bronchopneumonia, unspecified organism (3) Atypical chest pain Current visit: Yes Status: Acute Category: Medical Code(s): R07.89 - Other chest pain (4) Hypokalemia Current visit: Yes Status: Acute Category: Medical Code(s): E87.6 - Hypokalemia (5) Coronary arteriosclerosis Current visit: No Status: Chronic Category: Medical Code(s): I25.10 - Atherosclerotic heart disease of [place] coronary artery without angina pectoris (6) Hyperlipidemia Current visit: No Status: Chronic Qualifiers: Hyperlipidemia type: mixed hyperlipidemia Qualified Code(s): E78.2 - Mixed hyperlipidemia Category: Medical Code(s): E78.5 - Hyperlipidemia, unspecified (7) Hypertensive disorder Current visit: No Status: Chronic Qualifiers: Hypertension type: essential hypertension Qualified Code(s): I10 - Essential (primary) hypertension Category: Medical Code(s): I10 - Essential (primary) hypertension (8) Stented coronary artery Current visit: No Status: Chronic Category: Surgical Code(s): Z95.5 - Presence of coronary angioplasty implant and graft - Assessment and plan all Dx Assessment and Plan for all problems:: Discussed treatment options with patient and his and Dr. Rush in Pulmonary medicine. Plan intubation to achieve improved oxygenation and transfer to [facility] now. Will change antibiotics to Vancomycin and Zosyn now.
--- NOTE | 2018-06-14 08:33 | Progress Note ---
Internal Medicine - PN: Subj *Date: 06/14/18 *Time: 08:31 Interval history: Patient intubated without difficulty by anesthesia. CXR reviewed, ET tube in good position. Sats have improved to 91% Pt currently on Propofol drip. has accepted patient in transfer. Status discussed with patient's . Exam Vital signs and Labs for Last 24 Hours: Temp Pulse Resp BP Pulse Ox 99.5 F 104 H 12 140/80 91 L 06/14/18 08:04 06/14/18 08:04 06/14/18 08:04 06/14/18 08:04 06/14/18 08:04 Laboratory Results - last 24 hr 06/13/18 20:36: Specimen Source Right radial, O2 % 50% ronda mask, ABG pH 7.54 H, ABG pCO2 32.3 L, ABG pO2 45.0 L, ABG HCO3 26.7 H, ABG Total CO2 27.7 H, ABG O2 Saturation 84 L*, ABG Base Excess 4.1 H, Antwan Test Acceptable 06/13/18 21:57: POC Glucose 133 H 06/14/18 00:53: POC Glucose 120 H 06/14/18 01:05: WBC 5.8 D, RBC 3.98 L, Hgb 12.1 L, Hct 35.0 L, MCV 88.0, MCH 30.3, MCHC 34.4, RDW 12.7, Plt Count 134 L D, MPV 7.8, Neut % (Auto) 85.4 H, Lymph % (Auto) 10.9, [place] % (Auto) 3.5, Eos % (Auto) 0.0 L, Baso % (Auto) 0.1, Neut # (Auto) 4.9, Lymph # (Auto) 0.6 L, [place] # (Auto) 0.2, Eos # (Auto) 0.0, Baso # (Auto) 0.0, Total Counted 100, Neutrophils % (Manual) 81 H, Band Neutrophils % 5.0, Lymphocytes % (Manual) 14, Platelet Estimate Normal, RBC Morphology Normal 06/14/18 01:05: Sodium 139, Potassium 3.5, Chloride 101, Carbon Dioxide 27, Anion Gap 14.5, BUN 17, Creatinine 1.52 H, Estimated Creat Clear 88, Estimated GFR 50 L, Est GFR ( Amer) 61, Glucose 124 H, Calcium 7.9 L 06/14/18 01:05: Lactate 1.4 06/14/18 01:05: CK-MB (CK-2) 5.9 H, Troponin I 0.10 H 06/14/18 01:05: Mycoplasma pneumon IgM Reactive A 06/14/18 01:15: Specimen Source Left radial, O2 % 100% nrb, ABG pH 7.47 H, ABG pCO2 40.4, ABG pO2 63.7 L, ABG HCO3 28.5 H, ABG Total CO2 29.7 H, ABG O2 Saturation 92, ABG Base Excess 4.7 H, Antwan Test Acceptable 06/14/18 05:15: Chlamy pneumoniae PCR Not detected, Adenovirus (PCR) Not detected, B. pertussis DNA (PCR) Not detected, Coronavirus OC43 (PCR) Not detected, Coronavirus HKU1 (PCR) Not detected, Coronavirus 229E (PCR) Not detected, Coronavirus NL63 (PCR) Not detected, Human Metapneumovir PCR Not detected, Influenza A (H1) PCR Not detected, Influ A (H1N1/09) PCR Not detected, Influenza A (H3) PCR Not detected, Influenza Type A (PCR) Not detected, Influenza Type B (PCR) Not detected, M. pneumoniae (PCR) Not detected, Parainfluenza 1 (PCR) Not detected, Parainfluenza 2 (PCR) Not detected, Parainfluenza 3 (PCR) Not detected, Parainfluenza 4 (PCR) Not detected, RSV (PCR) Not detected, Entero/Rhino (PCR) Not detected 06/14/18 06:10: WBC 4.6 L, RBC 3.81 L, Hgb 11.5 L, Hct 33.7 L, MCV 88.6, MCH 30.2, MCHC 34.0, RDW 12.7, Plt Count 131 L, MPV 7.9, Neut % (Auto) 84.3 H, Lymph % (Auto) 11.3, [place] % (Auto) 4.4, Eos % (Auto) 0.0 L, Baso % (Auto) 0.1, Neut # (Auto) 3.9, Lymph # (Auto) 0.5 L, [place] # (Auto) 0.2, Eos # (Auto) 0.0, Baso # (Auto) 0.0 06/14/18 06:10: Sodium 140, Potassium 3.6, Chloride 103, Carbon Dioxide 27, Anion Gap 13.6, BUN 18, Creatinine 1.36 H, Estimated Creat Clear 98, Estimated GFR 57 L, Est GFR ( Amer) 69, Glucose 122 H, Calcium 7.4 L, Total Bilirubin 1.0, AST 279 H, ALT 221 H, Alkaline Phosphatase 102, Total Protein 4.6 L D, Albumin 2.2 L, Globulin 2.4, Albumin/Globulin Ratio 0.9 L I & O for Last 24 hours: Intake & Output 06/11/18 06/12/18 06/13/18 06/14/18 11:59 11:59 11:59 11:59 Intake Total 4783 / 4783 3680 / 3680 Output Total 600 / 600 1999 Balance 4183 / 4183 1680 / 1680 Weight 220 lb 219 lb 2 oz Microbiology Reports for the Last 24 Hours: Microbiology 06/13/18 06:30 Sputum - Expectorated Sputum Gram Stain - Final 06/13/18 06:30 Sputum - Expectorated Sputum Sputum Culture - Preliminary 06/12/18 14:00 Urine,Clean Catch Urine Culture - Preliminary NO GROWTH AFTER 24 HOURS 06/12/18 14:00 Throat Group A Streptococcus Screen ([place]) - Final Negative for Group A Streptococcus. Assessment and Plan (1) Acute respiratory failure with hypoxia Current visit: Yes Status: Acute Category: Medical Code(s): J96.01 - Acute respiratory failure with hypoxia (2) Diffuse pneumonia Current visit: Yes Status: Acute Category: Medical Code(s): J18.0 - Bronchopneumonia, unspecified organism (3) Atypical chest pain Current visit: Yes Status: Acute Category: Medical Code(s): R07.89 - Other chest pain (4) Hypokalemia Current visit: Yes Status: Acute Category: Medical Code(s): E87.6 - Hypokalemia (5) Coronary arteriosclerosis Current visit: No Status: Chronic Category: Medical Code(s): I25.10 - Atherosclerotic heart disease of [place] coronary artery without angina pectoris (6) Hyperlipidemia Current visit: No Status: Chronic Qualifiers: Hyperlipidemia type: mixed hyperlipidemia Qualified Code(s): E78.2 - Mixed hyperlipidemia Category: Medical Code(s): E78.5 - Hyperlipidemia, unspecified (7) Hypertensive disorder Current visit: No Status: Chronic Qualifiers: Hypertension type: essential hypertension Qualified Code(s): I10 - Essential (primary) hypertension Category: Medical Code(s): I10 - Essential (primary) hypertension (8) Stented coronary artery Current visit: No Status: Chronic Category: Surgical Code(s): Z95.5 - Presence of coronary angioplasty implant and graft
--- NOTE | 2018-06-14 08:40 | Progress Note ---
[facility] Anesthesia Checklist - Patient Identification Patient Identification: Arm Band, Family, Verbal (Name & ) - Structural Data Admitted From: Inpatient Planned Operative Procedure/s: Emergent intubation Consent for Planned Operative Procedure(s) Verified: Yes Verified Documents: History and Physical - NPO Status Verified Time NPO: 00:00 - Chart Verification Results Verified: CBC, BMP - Additional verifications Anesthesia Reactions: No - Airway Assessment C-Spine Mobility Assessed: Yes TMJ Mobility Assessed: Yes Dentition: Good Dentition - Neurological Assessment Level of Consciousness: Awake Hx Seizures: No Numbness or tingling in extremities: No - Anesthesia Plan Anesthesia Risk discussed: Yes Anesthesia Plan: Verified ASA Class: II Anesthesia Type: General [facility] History I have reviewed the patient's past medical history: Yes Medical History: Reports:: Coronary Artery Disease, Hyperlipidemia, Hypertension, Myocardial Infarction Denies:: Cancer, Diabetes Mellitus Type 1, Diabetes Mellitus Type 2, Internal Pacemaker, Lung Disease, MRSA, Seizures Have you ever received a pneumonia vaccine?: No Have you received a flu vaccine this season?: No Laterality Cases: Bilateral: Arthroscopy Knee, Arthroscopy Shoulder Other Surgeries: Yes: Cardiac Catheterization, Coronary Stent, Hernia Repair, Other (Femoral artery repair). No: Pacemaker Amputation: No Fractures: No - *Social History Educational Level: Completed High School Smoking Status: Never smoker Alcohol Intake: never Alcohol Intake Frequency:: holidays/special occasions only Substance Use Type: denies use Occupational Status: employed Housing: house Household Members: spouse Travel in the last 8 weeks: None - Psychiatric History Expresses thoughts of harming self/others: None Suicide Plan Description: No Plan *Family Hx:: Coronary Artery Disease, Diabetes, Heart Attack, Hyperlipidemia, Hypertension, Stroke
[2018-06-14 09:37] LABS: ABG Base Excess 3.4 mmol/L (-2.4-2.3); ABG HCO3 29.4 mmhg (22.0-26.0); ABG Oxygen Saturation 77 % (90-100); ABG PH 7.33 mmol/L (7.35-7.45); ABG TCO2 31.2 mmhg (23-27)
[2018-06-14 09:40] LABS: Allen's Test Acceptable; Oxygen 100 %; PEEP 6; Tidal Volume 500
[2018-06-14 09:42] LABS: ABG PCO2 57.7 mmhg (35.0-45.0); ABG PO2 46.5 mmhg (80-100)
[2018-06-14 10:11] LABS: Hepatitis B Core Antibody IgM Negative (Negative); Hepatitis B Surface Antigen Negative (Negative)
--- NOTE | 2018-06-14 11:01 | Pharmacy Consult Notes ---
- Pharmacy Consult Date: 06/14/18 Time: 10:59 Referring provider: DR. DOBSON Reason for Consult:: VANCOMYCIN DOSING Allergies and ADEs:: Allergies Allergy/AdvReac Type Severity Reaction Status Date / Time No Known Allergies Allergy Verified 06/07/18 10:40 Home Medications:: Home Medications Medication Instructions Recorded Confirmed Type B cplx 4-vit D3 1,750 unit-C 60 1 tab PO DAILY tab 07/02/17 06/12/18 History mg-folic acid 1 mg-zinc 12.5 mg tablet aspirin 81 mg tablet,delayed 81 mg PO DAILY tab 07/02/17 06/12/18 History release clopidogrel 75 mg tablet 75 mg PO DAILY tab 07/02/17 06/12/18 History loratadine 10 mg tablet 10 mg PO DAILY tab 07/02/17 06/12/18 History nitroglycerin 0.4 mg sublingual 0.4 mg SUBLINGUAL Q5M PRN #20 tab 03/18/18 06/12/18 Rx tablet pantoprazole 40 mg tablet,delayed 40 mg PO DAILY #90 tab 03/21/18 06/12/18 Rx release atorvastatin 80 mg tablet 80 mg PO DAILY #90 tab 03/25/18 06/12/18 Rx Fluticasone Propionate [Flonase 1 spray INTRANASAL DAILY 06/12/18 06/12/18 History Allergy Relief NS] Nebivolol HCl [Bystolic] 10 mg PO DAILY 06/13/18 06/13/18 History Height: 1.83 m Weight: 99.393 kg Laboratory Results:: Laboratory Results - last 24 hr 06/13/18 20:36: Specimen Source Right radial, O2 % 50% ronda mask, ABG pH 7.54 H, ABG pCO2 32.3 L, ABG pO2 45.0 L, ABG HCO3 26.7 H, ABG Total CO2 27.7 H, ABG O2 Saturation 84 L*, ABG Base Excess 4.1 H, [place]twan Test Acceptable 06/13/18 21:57: POC Glucose 133 H 06/14/18 00:53: POC Glucose 120 H 06/14/18 01:05: WBC 5.8 D, RBC 3.98 L, Hgb 12.1 L, Hct 35.0 L, MCV 88.0, MCH 30.3, MCHC 34.4, RDW 12.7, Plt Count 134 L D, MPV 7.8, Neut % (Auto) 85.4 H, Lymph % (Auto) 10.9, [place] % (Auto) 3.5, Eos % (Auto) 0.0 L, Baso % (Auto) 0.1, Neut # (Auto) 4.9, Lymph # (Auto) 0.6 L, [place] # (Auto) 0.2, Eos # (Auto) 0.0, Baso # (Auto) 0.0, Total Counted 100, Neutrophils % (Manual) 81 H, Band Neutroph ils % 5.0, Lymphocytes % (Manual) 14, Platelet Estimate Normal, RBC Morphology Normal 06/14/18 01:05: Sodium 139, Potassium 3.5, Chloride 101, Carbon Dioxide 27, Anion Gap 14.5, BUN 17, Creatinine 1.52 H, Estimated Creat Clear 88, Estimated GFR 50 L, Est GFR ( Amer) 61, Glucose 124 H, Calcium 7.9 L 06/14/18 01:05: Lactate 1.4 06/14/18 01:05: CK-MB (CK-2) 5.9 H, Troponin I 0.10 H 06/14/18 01:05: Mycoplasma pneumon IgM Reactive A 06/14/18 01:15: Specimen Source Left radial, O2 % 100% nrb, ABG pH 7.47 H, ABG pCO2 40.4, ABG pO2 63.7 L, ABG HCO3 28.5 H, ABG Total CO2 29.7 H, ABG O2 Saturation 92, ABG Base Excess 4.7 H, [place] Test Acceptable 06/14/18 05:15: Chlamy pneumoniae PCR Not detected, Adenovirus (PCR) Not detected, B. pertussis DNA (PCR) Not detected, Coronavirus OC43 (PCR) Not detected, Coronavirus HKU1 (PCR) Not detected, Coronavirus 229E (PCR) Not det ected, Coronavirus NL63 (PCR) Not detected, Human Metapneumovir PCR Not detected, Influenza A (H1) PCR Not detected, Influ A (H1N1/09) PCR Not detected, Influenza A (H3) PCR Not detected, Influenza Type A (PCR) Not detected, Influenza Type B (PCR) Not detected, M. pneumoniae (PCR) Not detected, Parainfluenza 1 (PCR) Not detected, Parainfluenza 2 (PCR) Not detected, Parainfluenza 3 (PCR) Not detected, Parainfluenza 4 (PCR) Not detected, RSV (PCR) Not detected, Entero/Rhino (PCR) Not detected 06/14/18 06:10: WBC 4.6 L, RBC 3.81 L, Hgb 11.5 L, Hct 33.7 L, MCV 88.6, MCH 30.2, MCHC 34.0, RDW 12.7, Plt Count 131 L, MPV 7.9, Neut % (Auto) 84.3 H, Lymph % (Auto) 11.3, [place] % (Auto) 4.4, Eos % (Auto) 0.0 L, Baso % (Auto) 0.1, Neut # (Auto) 3.9, Lymph # (Auto) 0.5 L, [place] # (Auto) 0.2, Eos # (Auto) 0.0, Baso # (Auto) 0.0 06/14/18 06:10: Sodium 140, Potassium 3.6, Chloride 103, Carbon Dioxide 27, Anion Gap 13.6, BUN 18, Creatinine 1.36 H, Estimated Creat Clear 98, Estimated GFR 57 L, Est GFR ( Amer) 69, Glucose 122 H, Calcium 7.4 L, Total Bilirubin 1.0, AST 279 H, ALT 221 H, Alkaline Phosphatase 102, Total Protein 4.6 L D, Albumin 2.2 L, Globulin 2.4, Albumin/Globulin Ratio 0.9 L 06/14/18 08:14: Specimen Source Left radial, O2 % 100, ABG pH 7.33 L, ABG pCO2 57.7 H, ABG pO2 46.5 L, ABG HCO3 29.4 H, ABG Total CO2 31.2 H, ABG O2 Saturation 77 L*, ABG Base Excess 3.4 H, [place] Test Acceptable, Vent Rate 12, Tidal Volume 500, PEEP 6 Medical History: Reports:: Coronary Artery Disease, Hyperlipidemia, Hypertension, Myocardial Infarction Denies:: Cancer, Diabetes Mellitus Type 1, Diabetes Mellitus Type 2, Internal Pacemaker, Lung Disease, MRSA, Seizures Assessment and Plan (1) Acute respiratory failure with hypoxia Current visit: Yes Status: Acute Category: Medical Code(s): J96.01 - Acute respiratory failure with hypoxia (2) Diffuse pneumonia Current visit: Yes Status: Acute Category: Medical Code(s): J18.0 - Bronchopneumonia, unspecified organism (3) Atypical chest pain Current visit: Yes Status: Acute Category: Medical Code(s): R07.89 - Other chest pain (4) Hypokalemia Current visit: Yes Status: Acute Category: Medical Code(s): E87.6 - Hypokalemia (5) Coronary arteriosclerosis Current visit: No Status: Chronic Category: Medical Code(s): I25.10 - Atherosclerotic heart disease of [place] coronary artery without angina pectoris (6) Hyperlipidemia Current visit: No Status: Chronic Qualifiers: Hyperlipidemia type: mixed hyperlipidemia Qualified Code(s): E78.2 - Mixed hyperlipidemia Category: Medical Code(s): E78.5 - Hyperlipidemia, unspecified (7) Hypertensive disorder Current visit: No Status: Chronic Qualifiers: Hypertension type: essential hypertension Qualified Code(s): I10 - Essential (primary) hypertension Category: Medical Code(s): I10 - Essential (primary) hypertension (8) Stented coronary artery Current visit: No Status: Chronic Category: Surgical Code(s): Z95.5 - Presence of coronary angioplasty implant and graft - Assessment and plan all Dx Assessment and Plan for all problems:: RECOMMEND STARTING WITH VANCOMYCIN 1500 MG Q12H AT THIS TIME. PHARMACY WILL FOLLOW DAILY AND ADJUST APPROPRIATE. HAL POZO, PHARMD
[2018-06-14 12:57] LABS: Hepatitis C Antibody <0.1 s/co ratio (0.0-0.9)
--- NOTE | 2018-06-17 15:32 | Discharge Summary ---
General - General Admission date:: 06/12/18 Discharge date: 06/14/18 HPI HPI: Mr. 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 His only medical history consists of an MO approximately 2 years ago. He states last Saturday he began feeling poorly and by Saturday morning he was running a fever of over 103, had nausea and vomiting as well as diarrhea, and was coughing. He states he went to the [facility] and they told him he was negative for flu after doing a flu swab and that he had a virus. He states he went home and continued to vomit and have diarrhea for the next 5 days. He became so weak he felt he was going to pass out and therefore presented to the emergency room for evaluation. He was found to have a pneumonia and was admitted for further evaluation and treatment. At this time he is feeling slightly better. He has not vomited since admission. He still has a cough. Hospital Course Hospital Course: The patient's abdominal and pelvis CT showed no acute abdominal findings but there were scattered groundglass nodular opacities in the lower lobes as well as some consolidation in the right middle lobe and lingula. Radiology felt the patient had bilateral pneumonia versus septic emboli/hematogenous spread. They felt a chest CT would be needed. The patient's initial chest x-ray showed bilateral pneumonia and he had a CTA that showed no evidence of PE and patchy diffuse bilateral areas of consolidation consistent with atypical pneumonia. He was started on oxygen, nebs, and antibiotics. A rapid response was called on 06/14/18 due to decreasing oxygen saturations. Vapotherm was placed at 100% FiO2 and the patient maintained sats in the mid 80s. He also ran a fever of around 103. He ended up getting a dose of IV Lasix, but had minimal urine output. His PCR respiratory panel came back normal. His mycoplasma pneumonia IgM was reactive. His antibiotics were changed to vancomycin and Zosyn. Due to the fact that the patient's oxygen saturations were only in the 80s on 100% FiO2, intubation was discussed with the patient. He and his were in agreement that he would be intubated and then transferred to the [facility] Pulmonology group under the care of Dr. Rush. The patient was intubated without difficulty and his ET tube was in good position. His sats improved to 91% and he was placed on a propofol drip. The [facility] accepted the patient in transfer. Objective Vital signs: Temp Pulse Resp BP Pulse Ox 99.5 F 96 H 28 H 107/61 L 84 L 06/14/18 08:11 06/14/18 10:15 06/14/18 10:15 06/14/18 10:15 06/14/18 10:15 Narrative: - Constitutional no acute distress - *Routine HEENT Exam Head: Present: normocephalic Eye: Present: EOMI, PERRL ENT: Present: mucous membranes dry - *Routine Neck Exam Present: supple. Absent: lymphadenopathy - *Routine Respiratory Exam Present: rales (bibasilar worse on the right side). Absent: rhonchi, wheezes - *Routine Cardiovascular Exam Present: RRR - *Routine Abdominal Exam Present: soft, normoactive bowel sounds, tenderness (diffuse) - *Routine Extremities Exam Absent: cyanosis, clubbing, edema - *Routine Skin Exam Present: warm. Absent: rash - *Routine Neurological Exam Present: alert, oriented X3 DS: Diagnosis - Discharge Diagnosis (1) Acute respiratory failure with hypoxia Status: Acute (2) Diffuse pneumonia Status: Acute (3) Atypical chest pain Status: Acute (4) Hypokalemia Status: Acute (5) Coronary arteriosclerosis Status: Chronic (6) Hyperlipidemia Status: Chronic (7) Hypertensive disorder Status: Chronic (8) Stented coronary artery Status: Chronic (9) Mycoplasma pneumonia Status: Acute Discharge Plan - Patient Discharge Instructions ACTIVITY: Bed rest DIET: NPO Patient Instructions: Intubation and Mechanical Ventilation, Pneumonia-Adult, Hepatitis C, Hepatitis B, Hepatitis A, DI for Dehydration -- Adult, DI for Viral Gastroenteritis -- Adult, DI for Hypokalemia Forms: Transfer Record - Follow up Plan Follow up with: Wesley Darden MD [Staff Physician] - Disposition: Xfer Short-Term Hosp Home Medications: Home Medications Medication Instructions Recorded Confirmed Type B cplx 4-vit D3 1,750 unit-C 60 1 tab PO DAILY tab 07/02/17 06/12/18 History mg-folic acid 1 mg-zinc 12.5 mg tablet aspirin 81 mg tablet,delayed 81 mg PO DAILY tab 07/02/17 06/12/18 History release clopidogrel 75 mg tablet 75 mg PO DAILY tab 07/02/17 06/12/18 History loratadine 10 mg tablet 10 mg PO DAILY tab 07/02/17 06/12/18 History nitroglycerin 0.4 mg sublingual 0.4 mg SUBLINGUAL Q5M PRN #20 tab 03/18/18 06/12/18 Rx tablet pantoprazole 40 mg tablet,delayed 40 mg PO DAILY #90 tab 03/21/18 06/12/18 Rx release atorvastatin 80 mg tablet 80 mg PO DAILY #90 tab 03/25/18 06/12/18 Rx Fluticasone Propionate [Flonase 1 spray INTRANASAL DAILY 06/12/18 06/12/18 History Allergy Relief NS] Nebivolol HCl [Bystolic] 10 mg PO DAILY 06/13/18 06/13/18 History Prescriptions/Medication Reconciliation: Continue aspirin 81 mg tablet,delayed release 81 mg PO DAILY tab B cplx 4-vit D3 1,750 unit-C 60 mg-folic acid 1 mg-zinc 12.5 mg tablet 1 tab PO DAILY tab clopidogrel 75 mg tablet 75 mg PO DAILY tab loratadine 10 mg tablet 10 mg PO DAILY tab nitroglycerin 0.4 mg sublingual tablet 0.4 mg SUBLINGUAL Q5M PRN #20 tab PRN Reason: chest pain atorvastatin 80 mg tablet 80 mg PO DAILY #90 tab pantoprazole 40 mg tablet,delayed release 40 mg PO DAILY #90 tab Fluticasone Propionate [Flonase Allergy Relief NS] 1 spray INTRANASAL DAILY Nebivolol HCl [Bystolic] 10 mg PO DAILY
== END 2018-06-14 10:15 | disposition short-term general hospital (02) | DRG 208 ==
LOC: ER 13:18 → 2ND 13:18 → OBSVTOIN 20:16 → 2ND 20:17
PROVIDERS: ADMIT Emergency Medicine; ATTEND Emergency Medicine
CPT/HCPCS: 36415; 71010; 71020; 71045; 71046; 71275; 74177; 80048; 80053; 80074; 81001; 82150; 82553; 82803; 82962; 83605; 83690; 83735; 84484; 85007; 85025; 86738; 87040; 87070; 87086; 87205; 87275; 87276; 87430; 87486; 87507; 87581; 87633; 87798; 93005; 94002; 94640; 94760; 94761; 96365; 96366; 96367; 96375; 99285; J0330; J1335; J1956; J2405; J2543; J2704; J3370; Q9967